=== PATIENT | male | born 1930 | race Caucasian/White ===

== ENCOUNTER 2017-11-25 12:12 | Inpatient (IN) | payer MEDICARE, MEDICAID ==
--- NOTE | 2017-11-25 12:38 | EDM.PDOC ---
ED HPI GENERAL MEDICAL PROBLEM - General Chief Complaint: Fever Stated Complaint: FEVER,CHILLS Time Seen by Provider: 11/25/17 12:29 Source of Information: Reports: Patient, Family History Limitations: Reports: Other (No information supporting presentation from [facility]) - History of Present Illness INITIAL COMMENTS - FREE TEXT/NARRATIVE: Patient is an 87-year-old gentleman who was brought to the emergency department via [facility] transportation secondary to fever and hypotension. Patient receives dialysis Thursday, Thursday and Thursday and was at the facility today. Patient was found to have low-grade fever and be hypotensive following dialysis. Patient was sent to ER without documentation as to symptomology or decision-making process. Patient presented to emergency department with his daughter. She is a good historian. Daughter states that yesterday patient had intermittent coughing but no fever. He developed more coughing today and then was found to have fever while at dialysis. Daughter states that dialysis Center recommended that the patient be evaluated for flu. Patient denies chest pain, shortness of breath, nausea, vomiting, diarrhea, abdominal pain, headache, Onset: Today Duration: Hour(s): Severity: Mild Improves with: Reports: Medication Worsens with: Reports: None Associated Symptoms: Reports: Cough, Fever/Chills Treatments CELERY STRIPPER: Reports: Acetaminophen - Related Data Allergies Allergy/AdvReac Type Severity Reaction Status Date / Time No Known Drug Allergies Allergy Cannot Verified 11/25/17 12:46 Remember Home Meds: Home Meds Atenolol 25 mg PO ASDIRECTED 11/25/17 [History] Cinacalcet [Sensipar] 30 mg PO DAILY 11/25/17 [History] Gabapentin [Neurontin] 300 mg PO BEDTIME 11/25/17 [History] Lidocaine/Prilocaine [Prilolid 2.5-2.5% Crm-Dress] 1 each TP ASDIRECTED PRN 05/10 [History] Omeprazole 20 mg PO DAILY 11/25/17 [History] Trolamine Salicylate [Ultracin T] 1 ml TP ASDIRECTED 11/25/17 [History] Vit B Comp No.3/Folic/C/Biotin [Nephro-Dane Rx Tablet] 1 each PO DAILY 11/25/17 [History] ED ROS GENERAL - Review of Systems Review Of Systems: ROS reveals no pertinent complaints other than HPI. Constitutional: Reports: Fever, Chills, Weakness HEENT: Reports: No Symptoms Respiratory: Reports: Cough Cardiovascular: Reports: No Symptoms Endocrine: Reports: No Symptoms GI/Abdominal: Reports: No Symptoms : Reports: No Symptoms Musculoskeletal: Reports: No Symptoms Skin: Reports: No Symptoms Neurological: Reports: No Symptoms Psychiatric: Reports: No Symptoms Hematologic/Lymphatic: Reports: No Symptoms Immunologic: Reports: No Symptoms ED EXAM, GENERAL - Physical Exam Exam: See Below Exam Limited By: No Limitations General Appearance: Alert, WD/WN, No Apparent Distress Eye Exam: Bilateral Eye: Normal Inspection Nose: Normal Inspection, Normal Mucosa, No Blood Throat/Mouth: Normal Inspection, Normal Oropharynx, No Airway Compromise Head: Atraumatic, Normocephalic Neck: Normal Inspection, Supple Respiratory/Chest: No Respiratory Distress, No Accessory Muscle Use, Chest Non- Tender, Rales (Right base) Cardiovascular: Regular Rate, Rhythm, No Murmur GI/Abdominal: Normal Bowel Sounds, Soft, Non-Tender, No Organomegaly, No Distention, No Abnormal Bruit, No Mass Back Exam: Normal Inspection. No: CVA Tenderness (L), CVA Tenderness (R) Extremities: Pedal Edema (Chronic at +1) Neurological: Alert, Oriented, Normal Cognition Psychiatric: Normal Affect, Normal Mood Skin Exam: Warm, Dry, Intact, Normal Color, No Rash Lymphatic: No Adenopathy Course - Vital Signs Last Recorded V/S: Last Vital Signs Temp 99.2 F 11/25/17 12:15 Pulse 80 11/25/17 12:15 Resp 18 11/25/17 12:15 BP 84/40 L 11/25/17 12:15 Pulse Ox 90 L 11/25/17 12:15 - Orders/Labs/Meds Orders: Active Orders 24 hr Category Date Time Status Patient Status [ADT] Routine ADT 11/25/17 13:46 Ordered Oxygen Therapy [RC] PRN Care 11/25/17 13:46 Ordered Peripheral IV Care [RC] . DIRECTED Care 11/25/17 13:46 Ordered VTE/DVT Education [RC] PER UNIT ROUTINE Care 11/25/17 13:46 Ordered Vital Signs [RC] Q4H Care 11/25/17 13:46 Ordered Chest 2V [CR] Stat Exams 11/25/17 12:32 Ordered CULTURE BLOOD [BC] Stat Lab 11/25/17 13:48 Ordered CULTURE BLOOD [BC] Stat Lab 11/25/17 13:48 Ordered INFLUENZA A+B AG SCREEN [RM] Stat Lab 11/25/17 12:32 Ordered INR,PT,PROTHROMBIN TIME [COAG] Stat Lab 11/25/17 12:29 Ordered PTT,PARTIAL THROMBOPLSTIN TIME [COAG] Stat Lab 11/25/17 12:29 Ordered Sodium Chloride 0.9% @ 100 MLS/HR(500ml) Med 11/25/17 13:45 Ordered Sodium Chloride 0.9% [Normal Saline] 500 ml IV ASDIRECTED Sodium Chloride 0.9% [Syrex Flush] Med 11/25/17 13:45 Ordered 5 ml FLUSH Q8HR PRN Blood Culture x2 Reflex Set [OM.PC] Stat Oth 11/25/17 13:48 Ordered Peripheral IV Insertion Adult [OM.PC] Routine Oth 11/25/17 13:45 Ordered Resuscitation Status Routine Resus Stat 11/25/17 13:46 Ordered Medication Orders Sodium Chloride (Normal Saline) 500 mls @ 100 mls/hr IV ASDIRECTED ALEX Sodium Chloride (Syrex Flush) 5 ml FLUSH Q8HR PRN PRN Reason: Keep Vein Open Labs: Laboratory Tests 11/25/17 11/25/17 Range/Units 07:20 07:20 WBC 13.19 H (5.00-10.00) 10^3/uL RBC 3.30 L (4.50-6.00) 10^6/uL Hgb 9.8 L (13.0-17.0) g/dL Hct 30.3 L (40.0-52.0) % MCV 91.8 (82.0-92.0) fL MCH 29.7 (27.0-31.0) pg MCHC 32.3 (32.0-36.0) g/dL RDW 15.2 H (11.5-14.5) % Plt Count 207 (150-400) 10^3/uL MPV 9.6 (7.4-10.4) fL Immature Gran % (Auto) 0.8 (0.0-5.0) % Neut % (Auto) 85.8 H (50.0-70.0) % Lymph % (Auto) 3.6 L (20.0-40.0) % [place] % (Auto) 9.6 H (2.0-8.0) % Eos % (Auto) 0.0 L (1.0-3.0) % Baso % (Auto) 0.2 (0.0-1.0) % Immature Gran # (Auto) 0.10 (0.00-0.50) 10^3/uL Neut # (Auto) 11.32 H (2.50-7.00) 10^3/uL Lymph # (Auto) 0.48 L (1.00-4.00) 10^3/uL [place] # (Auto) 1.27 H (0.10-0.80) 10^3/uL Eos # (Auto) 0.00 L (0.10-0.30) 10^3/uL Baso # (Auto) 0.02 (0.00-0.10) 10^3/uL Sodium 134 L (136-145) mmol/L Potassium 4.8 (3.3-5.3) mmol/L Chloride 94 L (98-115) mmol/L Carbon Dioxide 25.1 (21.0-32.0) mmol/L Anion Gap 19.7 H (5-15) mmol/L BUN 54 H* (6-25) mg/dL Creatinine 6.26 H (0.51-1.17) mg/dL Est Cr Clr Drug Dosing 7.22 mL/min Estimated GFR (MDRD) 9 mL/min Glucose 182 mg/dL Calcium 7.9 L (8.7-10.3) mg/dL Total Bilirubin 0.9 (0.2-1.0) mg/dL AST 35 (15-37) U/L ALT 33 (12-78) U/L Alkaline Phosphatase 339 H (46-116) IU/L Total Protein 6.5 (6.4-8.2) g/dL Albumin 2.44 L (3.00-4.80) g/dL Meds: Medications Generic Name Dose Route Start Last Admin Trade Name Freq PRN Reason Stop Dose Admin Sodium Chloride 500 mls @ 100 mls/hr 11/25/17 13:45 Normal Saline IV ASDIRECTED ALEX Sodium Chloride 5 ml 11/25/17 13:45 Syrex Flush FLUSH Q8HR PRN Keep Vein Open Discontinued Medications Generic Name Dose Route Start Last Admin Trade Name Freq PRN Reason Stop Dose Admin Ceftriaxone Sodium 1 gm 11/25/17 13:45 Rocephin IVPUSH 11/25/17 13:46 ONETIME ONE Levofloxacin 500 mg 11/25/17 13:45 Levaquin PO 11/25/17 13:46 ONETIME ONE - Radiology Interpretation Free Text/Narrative:: Chest x-ray shows right lower lobe pneumonia Departure - Departure Time of Disposition: 13:49 Disposition: Admitted As Inpatient 68 Condition: Fair Clinical Impression: Pneumonia Qualifiers: Pneumonia type: due to unspecified organism Laterality: right Lung location: lower lobe of lung Qualified Code(s): J18.1 - Lobar pneumonia, unspecified organism - Discharge Information Referrals: Soo Church PA-C [Primary Care Provider] - Forms: ED Department Discharge - My Orders Last 24 Hours: My Active Orders 11/25/17 12:29 INR,PT,PROTHROMBIN TIME [COAG] Stat PTT,PARTIAL THROMBOPLSTIN TIME [COAG] Stat 11/25/17 12:32 Chest 2V [CR] Stat INFLUENZA A+B AG SCREEN [RM] Stat 11/25/17 13:45 Sodium Chloride 0.9% @ 100 MLS/HR(500ml) Sodium Chloride 0.9% [Normal Saline] 500 ml IV ASDIRECTED Sodium Chloride 0.9% [Syrex Flush] 5 ml FLUSH Q8HR PRN Peripheral IV Insertion Adult [OM.PC] Routine 11/25/17 13:46 Patient Status [ADT] Routine Oxygen Therapy [RC] PRN Peripheral IV Care [RC] . DIRECTED VTE/DVT Education [RC] PER UNIT ROUTINE Vital Signs [RC] Q4H Resuscitation Status Routine 11/25/17 13:48 CULTURE BLOOD [BC] Stat CULTURE BLOOD [BC] Stat Blood Culture x2 Reflex Set [OM.PC] Stat - Assessment/Plan Last 24 Hours: My Active Orders 11/25/17 12:29 INR,PT,PROTHROMBIN TIME [COAG] Stat PTT,PARTIAL THROMBOPLSTIN TIME [COAG] Stat 11/25/17 12:32 Chest 2V [CR] Stat INFLUENZA A+B AG SCREEN [RM] Stat 11/25/17 13:45 Sodium Chloride 0.9% @ 100 MLS/HR(500ml) Sodium Chloride 0.9% [Normal Saline] 500 ml IV ASDIRECTED Sodium Chloride 0.9% [Syrex Flush] 5 ml FLUSH Q8HR PRN Peripheral IV Insertion Adult [OM.PC] Routine 11/25/17 13:46 Patient Status [ADT] Routine Oxygen Therapy [RC] PRN Peripheral IV Care [RC] . DIRECTED VTE/DVT Education [RC] PER UNIT ROUTINE Vital Signs [RC] Q4H Resuscitation Status Routine 11/25/17 13:48 CULTURE BLOOD [BC] Stat CULTURE BLOOD [BC] Stat Blood Culture x2 Reflex Set [OM.PC] Stat Assessment:: Pneumonia Plan: Admit inpatient to Dr. Prabhakar
[2017-11-25 13:25] LABS: ANION GAP 19.7 mmol/L (5-15)
[2017-11-25] MEDS ORDERED: cefTRIAXone 1 GM Vial IVPUSH ONE (13:45)
[2017-11-25] MEDS ORDERED: Sodium Chloride 0.9% 500 ML IV SCH (13:45)
[2017-11-25] MEDS ORDERED: Levofloxacin 500 MG Tab PO ONE (13:45)
[2017-11-25] MEDS ORDERED: Sodium Chloride 0.9% 5 ML Syringe FLUSH PRN (13:45)
--- NOTE | 2017-11-26 08:53 | PN ---
11/25/2017 PATIENT NAME: LIZETH TEJEDA PATIENT PROFILE: The patient is an 87-year-old gentleman from [place], [place], who was admitted to the hospital today because of hypotension and a suspected left lower lobe pneumonia. This patient is known to have diabetic nephropathy and is currently on dialysis 3 times a week. He also has diabetic polyneuropathy, obesity, and previous history of sepsis and gout. He was taken to the dialysis facility this morning, but apparently the dialysis could not be performed on him because of his hypotension. Because of the left lower lobe pneumonia, he was admitted briefly to the hospital. He has been an insulin- dependent diabetic for some time. His lab work today reveals a hemoglobin of 9.8, white count of 13,000 with 85.8 segs, 3.6 lymphocytes, 9.6 monocytes, 11.32 neutrophil count. Potassium is 4.8, sodium 134, BUN is 54, creatinine 6.26. The patient was started on IV antibiotics including Rocephin and oral azithromycin. However, the nurses were unable to find a peripheral IV for him at the hospital. Nephrology was initially consulted and they had felt that he could be probably taken care of at this hospital, however, the IVs could not be found and the patient was found to be somewhat edematous, Nephrology was consulted again and it was felt that he should be transferred to [place]. Accordingly, he was transferred to [place] in a very stable condition for further treatment for his left lower lobe pneumonia. /[id number]/MODL MTDD
== END 2017-11-25 16:40 | DRG 195 ==
LOC: KA.ED 12:12 → MERGE 13:46 → KA.MS 13:46 → KA.ED 14:00
PROVIDERS: ADMIT Physician Assistant Surgical; ATTEND Family Medicine
DX: J18.1 Lobar pneumonia, unspecified organism (principal); I95.9 Hypotension, unspecified; R50.9 Fever, unspecified; Z79.899 Other long term (current) drug therapy; E11.40 Type 2 diabetes mellitus with diabetic neuropathy, unspecified; E66.9 Obesity, unspecified; M10.9 Gout, unspecified; Z79.4 Long term (current) use of insulin
CPT/HCPCS: 71046; 80053; 82962; 85025; 87804; 99285